=== PATIENT | female | born 1980 | race Hispanic/Latino ===

== ENCOUNTER 2025-02-02 23:46 | Emergency (ER) | payer SELFPAY ==
[~2025-02-02] VITALS: Ht 167.6 cm; Wt 127.0 kg
[~2025-02-02 23:46] MED LIST: AEC81 PO; LOSA100T59 PO; METO50TA18 PO; TELM40TA8 PO
[2025-02-02] MEDS ORDERED: ETOMIDATE 20MG VIAL IVP ONE (23:47)
[2025-02-03 00:16] LABS: APPEARANCE,URINE CLEAR (CLEAR); GLUCOSE, URINE (UA) TRACE mg/dL (NEGATIVE); LEUKOCYTE ESTERASE ,URINE NEGATIVE Leu/uL (NEGATIVE); NITRATE,URINE NEGATIVE (NEGATIVE); OCCULT BLOOD,URINE +- (TRACE) (NEGATIVE)
--- NOTE | 2025-02-03 00:17 | NUR ---
PT TAKEN TO CT WITH ED RN
[2025-02-03 00:21] LABS: ADD UA MICROSCOPIC YES
[2025-02-03 00:23] LABS: SQUAMOUS EPITHELIAL CELL,UR RARE /HPF (0-2)
[2025-02-03 00:24] LABS: AMPHET/METH SCREEN,URINE NEGATIVE (NEGATIVE); BARBITURATE SCREEN, URINE NEGATIVE (NEGATIVE); CANNABINOID SCREEN,URINE NEGATIVE (NEGATIVE); COCAINE SCREEN,URINE NEGATIVE (NEGATIVE)
--- NOTE | 2025-02-03 00:25 | NUR ---
PT BROUGHT BACK FROM CT WITH ED RN
[2025-02-03 00:27] LABS: IMMATURE GRANULOCYTE ABSOLUTE 0.07 K/uL (0-1); NUCLEATED RED BLOOD CELLS 0.0 % (0.0-0.19); PLATELET COUNT (AUTO) 151 K/uL (130-400); RED BLOOD CELL COUNT(AUTO) 4.84 MIL/uL (4.00-5.50); RED CELL DISTRIBUTION WIDTH 13.2 % (11.0-15.5); WHITE BLOOD COUNT (AUTO) 12.1 K/uL (4.8-10.8)
[2025-02-03 00:35] LABS: CREATININE 1.0 mg/dL (0.5-1.0); GLOMERULAR FILTR. RATE CALC 72.0 mL/min (>90); GLUCOSE,RANDOM 173.0 mg/dL (70-105); SODIUM SERUM 137.0 mmol/L (136-145); UREA NITROGEN, BLOOD 13.0 mg/dL (7-18)
--- NOTE | 2025-02-03 00:40 | NUR ---
INTUBATION NOTE: 0035 20MG OF ETOMIDATE GIVEN IVP ORDERED BY ED 0036 100MG OF ROCURONIUM GIVEN IVP ORDERED BY ED 0037 PATINT INTUBATED AT THIS TIME BY GUSTAVO DONALD WITH ED MD AT BEDSIDE ; 7.5 ETT@24 CM AT THE TEETH 16FR OG TUBE INSERTED 16FR DICKERSON INSERTED
[2025-02-03 00:42] LABS: CREATINE KINASE, TOTAL 200.0 U/L (21-232)
[2025-02-03 01:14] VITALS: PULSE 134; O2SAT 100
--- NOTE | 2025-02-03 01:20 | HMCIMG ---
EXAM: CT Head Without IV contrast. HISTORY: Patient presents with unresponsiveness and altered mental status. TECHNIQUE: Axial computed tomography images of the head/brain without intravenous contrast. COMPARISON: None provided. FINDINGS: BRAIN: Diffuse cerebral edema with effacement of the sulci and CSF spaces. A 1.7 ??? 1.7 ??? 1.1 cm hyperdense lesion in the left ganglio-thalamic region with surrounding edema extending throughout the ventricular system, producing mild hydrocephalus. Mass effect with approximately 5 mm midline shift to the right. Peripheral hypodensities with loss of barrera???white matter differentiation in both frontal lobes, more pronounced on the left, concerning for acute ischemic etiology. Mild acute SAH in the left perimesencephalic cisterns. Bilateral periventricular white matter chronic small vessel ischemic changes. VENTRICLES: Mild hydrocephalus related to intraventricular extension of the hyperdense lesion. ORBITS the little: Unremarkable. SINUSES AND MASTOIDS: Paranasal sinuses and mastoid air cells are clear. BONES: No fracture. SOFT TISSUES: Unremarkable. Endotracheal tube in situ. IMPRESSION: Hyperdense left ganglio-thalamic lesion with extensive intraventricular extension, surrounding edema, and mild hydrocephalus. Differentials are hypertensive bleed versus underlying vascular malformation. Mass effect with approximately 5 mm midline shift to the right. Peripheral frontal lobe hypodensities with barrera???white matter differentiation loss, more prominent on the left, concerning for acute infarct. Mild acute SAH in the left perimesencephalic cisterns. Diffuse cerebral edema with effacement of sulci and CSF spaces. Chronic small vessel ischemic changes in the periventricular white matter. Recommend MRI brain with contrast and MR angiography as higher-tier imaging for characterization of the lesion, evaluation of ischemia, and assessment of intracranial vasculature. /[place]
--- NOTE | 2025-02-03 01:38 | HMCIMG ---
EXAM: CR Chest, 1 View. CLINICAL HISTORY: Post intubation. COMPARISON: None provided. FINDINGS: The endotracheal tube is low in position with the tip at 1.8 cm from the sandrine. The nasogastric tube is in place with the distal end in the body of the stomach. LUNGS: There is no mass, infiltrate, or acute pulmonary abnormality. PLEURAL SPACES: No evidence of pleural effusion or pneumothorax. MEDIASTINUM: Cardiomegaly. BONES: No aggressive appearing osseous lesion. IMPRESSION: No acute infiltrate or effusion. Cardiomegaly. The endotracheal tube is low in position with the tip athe t 1.8 cm from the sandrine. Needs repositioning. The nasogastric tube is in place. /[place]
[2025-02-03] MEDS: MANNITOL 20% 500 ML IV.SOLN IV ONE (01:47)
[2025-02-03] MEDS ORDERED: ETOMIDATE 20MG VIAL IVP ONE (02:30)
--- NOTE | 2025-02-03 03:09 | HMCIMG ---
EXAM: CR Chest, 1 View. CLINICAL HISTORY: POST CENTRAL LINE PLACEMENT COMPARISON: Compared with previous FINDINGS: The nasogastric tube is well-positioned over the stomach. The left central venous catheter and tip are located in the distal SVC. The endotracheal tube is located near the sandrine. LUNGS: The lungs show bilateral air space opacities in the lower zone PLEURAL SPACES: No evidence of pleural effusion or pneumothorax. MEDIASTINUM: Cardiac size and mediastinal contours are within normal limits. BONES: No aggressively appearing osseous lesion was seen. IMPRESSION: Low position of the endotracheal tube (need revision) Well-placed left central venous catheter, and the tip is in the distal SVC. Air space infiltrates the lower zone. (As compared to the previous X-ray position, of endotracheal tubes remain the same) /[place]
--- NOTE | 2025-02-03 03:18 | NUR ---
REPORT GIVEN TO CODY RUIZ FROM [facility], ROOM 4229;
--- NOTE | 2025-02-03 03:21 | ERN ---
General Chief Complaint: Altered Mental Status Stated Complaint: UNRESPONSIVE Time Seen by MD: 00:14 Source: family History of Present Illness Initial Comments 44-year-old female morbidly obese with diabetes and hypertension was found slumped over in the bathroom by her family after she had not come out from the bathroom in a reasonable amount of time. EMT was called, they noted the patient was unresponsive but breathing spontaneously and had pinpoint pupils. They gave patient Narcan on route but the patient did not wake up. In the emergency room here two more doses of Narcan were given and the patient is still did not wake u p. Stat CT scan was obtained it showed a subarachnoid hemorrhage on the left side. Patient was subsequently intubated and arrangements made to transfer her to [facility]. In addition central line in the left IJ and also a right femoral a line were placed. Patient was placed on a Cardene drip as well as a propofol drip. Allergies: Coded Allergies: No Known Allergies (Verified Allergy, Unknown, 12/14/19) Home Meds Active Scripts Aspirin (ASPIRIN 81 MG ECTAB) 81 Mg Ectab, 81 MG PO DAILY, #90 TAB.EC Prov:[facility] 12/17/19 Metoprolol Tartrate (Metoprolol Tartrate) 50 Mg Tablet, 50 MG PO BID, #180 TAB Prov:NELY ARTIS [employer] 12/17/19 Losartan Potassium (Losartan Potassium) 100 Mg Tablet, 100 MG PO AM, #90 TAB Prov:[facility]IS [facility] 12/17/19 Reported Medications Telmisartan (Telmisartan) 40 Mg Tablet, 40 MG PO BID, TAB 12/14/19 Past Medical History Past Medical History: Diabetes-Type II, Hypertension Past Surgical History: Unknown ROS Dictation Unable to obtain review of systems as patient is unresponsive. Physical Exam General Appearance: (+) mild distress Orientation: (+) other documentation (Patient unresponsive with a GCS of E1 M4 V intubated) Head/Face Trauma: No Eye: bilateral eye normal inspection, bilateral eye PERRL, bilateral eye EOMI Ear, Nose, Throat: (+) hearing grossly normal, (+) normal ENT inspection Neck: (+) normal inspection, (+) supple, (+) no JVD Respiratory: (+) chest non-tender, (+) lungs clear, (+) well ventilated Heart: (+) regular, (+) no gallop Vascular: (+) no edema, (+) normal peripheral pulse, (+) no JVD Gastrointestinal: (+) soft, (+) bowel sound present Results Laboratory and Microbiology Lab and Micro Result Laboratory Tests Test 02/03/25 00:06 02/03/25 00:07 02/03/25 00:08 White Blood Count 12.1 K/uL (4.8-10.8) H Red Blood Count 4.84 MIL/uL (4.00-5.50) Hemoglobin 14.5 g/dL (12.0-16.0) Hematocrit 43.5 % (36-48) Mean Corpuscular Volume 89.9 fL (79-99) Mean Corpuscular Hemoglobin 30.0 pg (27.0-33.0) Mean Corpuscular Hemoglobin Concent 33.3 g/dL (32.0-36.0) Red Cell Distribution Width 13.2 % (11.0-15.5) Platelet Count 151 K/uL (130-400) Mean Platelet Volume 12.0 fL (7.5-10.5) H Immature Granulocyte % (Auto) 0.6 % (0-1) Neutrophils (%) (Auto) 71.7 % (40.0-77.0) Lymphocytes (%) (Auto) 19.7 % (21.0-51.0) L Monocytes (%) (Auto) 6.4 % (3.0-13.0) Eosinophils (%) (Auto) 1.0 % (0.0-8.0) Basophils (%) (Auto) 0.6 % (0.0-5.0) Neutrophils # (Auto) 8.7 K/uL (1.8-7.7) H Lymphocytes # (Auto) 2.4 K/uL (1.0-4.8) Monocytes # (Auto) 0.8 K/uL (0.1-1.0) Eosinophils # (Auto) 0.12 K/uL (0.00-0.70) Basophils # (Auto) 0.07 K/uL (0.00-0.20) Absolute Immature Granulocyte (auto 0.07 K/uL (0-1) Nucleated Red Blood Cells 0.0 % (0.0-0.19) Sodium Level 137 mmol/L (136-145) Potassium Level 3.4 mmol/L (3.5-5.1) L Chloride Level 100 mmol/L (101-111) L Carbon Dioxide Level 25 mmol/L (21-32) Blood Urea Nitrogen 13 mg/dL (7-18) Creatinine 1.0 mg/dL (0.5-1.0) Glomerular Filtration Rate Calc 72 mL/min (>90) Random Glucose 173 mg/dL (70-105) H Lactic Acid Level 4.3 mmol/L (0.8-2.5) H Total Calcium 8.7 mg/dL (8.5-10.1) Total Creatine Kinase 200 U/L (21-232) # Troponin I High Sensitivity 19.2 ng/L (4-50) Whole Blood Glucose 163 MG/DL (70-110) H Urine Color COLORLESS (YELLOW) Urine Appearance CLEAR (CLEAR) Urine pH 6.5 (5.0-8.0) Urine Specific [place] 1.012 (1.001-1.031) Urine Protein 50 mg/dL (NEGATIVE) H Urine Glucose (UA) TRACE mg/dL (NEGATIVE) H Urine Ketones NEGATIVE mg/dL (NEGATIVE) Urine Occult Blood +- (TRACE) (NEGATIVE) H Urine Nitrate NEGATIVE (NEGATIVE) Urine Bilirubin NEGATIVE mg/dL (NEGATIVE) Urine Urobilinogen 0.2 mg/dL (0.2-1.0) Urine Leukocyte Esterase NEGATIVE [place]/uL Urine RBC 2-5 /HPF (0-1) H Urine WBC 0-1 /HPF (0-1) Urine Squamous Epithelial Cells RARE /HPF (0-2) Urine Bacteria None /HPF (None Seen) Urine Opiates Screen NEGATIVE (NEGATIVE) Urine Barbiturates Screen NEGATIVE (NEGATIVE) Urine Phencyclidine Screen NEGATIVE (NEGATIVE) Urine Amphetamines Screen NEGATIVE (NEGATIVE) Urine Benzodiazepines Screen NEGATIVE (NEGATIVE) Urine Cocaine Screen NEGATIVE (NEGATIVE) Urine Marijuana (THC) Screen NEGATIVE (NEGATIVE) MDM Given the findings on the CT scan patient was given 170 g of mannitol. She is also given a g of Keppra. With the propofol sedation and a Cardene drip patient's systolic blood pressure was maintain below 140. Patient transferred to [facility] neuro surgery ED Course Orders Procedure Category Date Status Time Naloxone Hcl 0.4 Mg/1 PHA 02/03/25 Complete Ml Ml (Narcan 0.4m 00:07 Iv Insertion CPOE 02/02/25 Transmitted 23:58 Pulse Ox(Continuous) RT 02/02/25 Transmitted 23:58 Vital Signs Per CPOE 02/02/25 Transmitted Routine 23:58 12 Lead Ekg Tracing- EKG 02/02/25 Logged Technical 23:58 Cbc With Differential LAB 02/02/25 Complete 23:58 Blood Cult DUC 02/02/25 In Process 23:58 Urinalysis Profile LAB 02/02/25 Complete 23:58 Culture Urine DUC 02/02/25 Logged 23:58 Lactic Acid LAB 02/02/25 Complete 23:58 Basic Metabolic Panel LAB 02/02/25 Complete 23:58 Drug Screen Urine LAB 02/03/25 Complete 00:09 Ct Head/Brain W/O CT 02/03/25 Resulted Contrast 00:12 Nicardipine 25mg Inj PHA 02/03/25 Complete (Cardene 25mg Inj) 00:15 Nicardipine 25mg Inj PHA 02/03/25 In Process (Cardene 25mg Inj) 00:30 Cardiac Panel LAB 02/03/25 Complete 00:06 Nicardipine 25mg Inj PHA 02/03/25 Complete (Cardene 25mg Inj) 00:30 Ondansetron 4mg Inj PHA 02/03/25 Complete (Zofran 4mg Inj) 00:32 Chest 1vw RAD 02/03/25 Resulted 00:42 Levetiracetam 500 PHA 02/03/25 Complete Mg/5 Ml Sd V (Keppra 5 00:44 *Nursing CPOE 02/03/25 Transmitted Communication: 00:45 Levetiracetam 500 PHA 02/03/25 Complete Mg/5 Ml Sd V (Keppra 5 01:00 Propofol 1000 Mg/100 PHA 02/03/25 In Process Ml (Diprivan 1000mg 01:00 Propofol 1000 Mg/100 PHA 02/03/25 Complete Ml (Diprivan 1000mg 00:50 Levetiracetam 500 PHA 02/03/25 Complete Mg/5 Ml Sd V (Keppra 5 01:30 Labetalol 20mg Syg PHA 02/03/25 Complete (Trandate 20mg Syg) 01:30 Labetalol 20mg Syg PHA 02/03/25 Complete (Trandate 20mg Syg) 01:12 Naloxone Hcl 0.4 Mg/1 PHA 02/03/25 Complete Ml Ml (Narcan 0.4m 01:30 Naloxone Hcl 0.4 Mg/1 PHA 02/03/25 Complete Ml Ml (Narcan 0.4m 01:30 Ondansetron 4mg Inj PHA 02/03/25 Complete (Zofran 4mg Inj) 01:30 Mannitol 20% 500ml PHA 02/03/25 Complete Bag (Osmitrol 20% 500 02:00 Chest 1vw RAD 02/03/25 Resulted 01:57 Etomidate 20mg Vial PHA 02/03/25 Complete (Amidate 20mg Vial) 02:30 Rocuronium [place] PHA 02/03/25 Complete (Zemuron) 02:30 Naloxone Hcl 0.4 Mg/1 PHA 02/03/25 Complete Ml Ml (Narcan 0.4m 02:30 Lactic Acid (Removed) LAB 02/03/25 Logged 03:20 Current Medications Medications (Trade) Dose Ordered Sig/Raj Route PRN Reason Start Time Stop Time Status Last Admin Dose Admin Etomidate (Amidate 20mg Vial) 20 mg ONCE ONCE IVP 02/03/25 02:30 02/03/25 02:31 DC Labetalol HCl (TRANdate 20MG SYG) 10 mg ONCE ONCE IV 02/03/25 01:30 02/03/25 01:31 DC 02/03/25 01:21 Labetalol HCl (TRANdate 20MG SYG) 20 mg STK-MED ONCE IV 02/03/25 01:12 02/03/25 01:12 DC Levetiracetam (kepPRA 500 MG/5 ML SD VIAL) 500 mg STK-MED ONCE IV 02/03/25 00:44 02/03/25 00:44 DC Levetiracetam (kepPRA 500 MG/5 ML SD VIAL) 1,000 mg ONCE ONCE IV 02/03/25 01:00 02/03/25 01:02 DC 02/03/25 01:16 Levetiracetam (kepPRA 500 MG/5 ML SD VIAL) 1,000 mg ONCE ONCE IV 02/03/25 01:30 02/03/25 01:31 DC Mannitol (Osmitrol 20% 500ml Bag) 127 gm ONCE ONCE IV 02/03/25 02:00 02/03/25 02:01 DC 02/03/25 01:47 Naloxone HCl (NARcan 0.4mg/1 mL) 0.4 mg ONCE IVP 02/03/25 01:30 02/03/25 02:13 DC Naloxone HCl (NARcan 0.4mg/1 mL) 0.4 mg ONCE IVP 02/03/25 01:30 02/03/25 02:13 DC Naloxone HCl (NARcan 0.4mg/1 mL) 0.4 mg ONCE ONCE IVP 02/03/25 02:30 02/03/25 02:14 DC Naloxone HCl (NARcan 0.4mg/1 mL) 0.4 mg STK-MED ONCE .ROUTE 02/03/25 00:07 02/03/25 00:07 DC 02/03/25 00:07 Nicardipine HCl (CarDENE 25MG INJ) 25 mg STK-MED ONCE IV 02/03/25 00:15 02/03/25 00:15 DC Nicardipine HCl 25 mg/Sodium Chloride 250 ml @ 0 mls/hr PROTOCOL IV 02/03/25 00:30 03/05/25 00:29 02/03/25 01:19 Nicardipine HCl 50 mg/Sodium Chloride 250 ml @ 0 mls/hr PROTOCOL IV 02/03/25 00:30 02/03/25 00:28 DC Ondansetron HCl (zoFRAN 4MG INJ) 4 mg ONCE ONCE IVP 02/03/25 01:30 02/03/25 01:31 DC 02/03/25 00:32 Ondansetron HCl (zoFRAN 4MG INJ) 4 mg STK-MED ONCE .ROUTE 02/03/25 00:32 02/03/25 00:32 DC Propofol 100 ml @ As Directed STK-MED ONCE IV 02/03/25 00:50 02/03/25 00:50 DC Propofol (DIPRivan 1000MG/ 100ML) 1,000 mg PROTOCOL PRN IV SEDATION 02/03/25 01:00 03/05/25 00:59 02/03/25 01:20 Rocuronium [place] (ZemuRON) 100 mg ONCE ONCE IV 02/03/25 02:30 02/03/25 02:31 DC Vital Signs Date Time Temp Pulse Resp B/P (MAP) Pulse Ox O2 Delivery O2 Flow Rate FiO2 02/03/25 02:58 86 12 110/56 98 Ventilator+ 50 02/03/25 02:31 97.9 84 12 137/65 99 Ventilator+ 50 02/03/25 01:53 76 156/82 97 Ventilator+ 50 02/03/25 01:36 78 22 163/94 97 Ventilator+ 50 02/03/25 01:26 98.2 64 15 192/102 98 Ventilator+ 52 02/03/25 01:21 86 210/112 02/03/25 01:19 89 223/129 02/03/25 01:14 134 50 02/03/25 00:34 76 20 261/134 100 Non-Rebreather+ 15 100 02/03/25 00:11 85 20 229/144 99 Nasal Cannula* 2 28 02/02/25 23:55 76 20 211/111 99 Nasal Cannula* 2 02/02/25 23:47 97.9 72 18 143/78 97 Room Air 0 Central Line Central Line : Central Line Lumen: triple Central Line Procedure: no betadine prepno sterile drapes appliedno sterile dressing applied Central Line Postion: internal jugular (L) Complications: none Central Line Post Position: sutured, good blood return, position confirmed w/ CXR Intubation Intubation : Time of Intubation: 20:50 Intubation Method: orotracheal Tube Size (cm): 7.5 Medications: Succinylcholine Breath Sounds after Intubation: right greater than left Intubation Complications: no complications Post Intubation Xray: Yes Progress/Xray Impression: X-ray shows ET tube in good position above the sandrine. Patient had infiltr Additional Procedures Additional Procedures : Additional Procedures: other (Arterial line placed in right femoral artery using a Seldinger technique and palpation to find the artery. Artery entered in 1st pass of the wire. Good waveform at the end of the procedure.) DX & DISP Disposition: Transfer Departure Impression: Primary Impression: Subdural hematoma, nontraumatic Condition: Stable Referrals: SELF,REFERRAL (PCP) AUDRA BEAVERS MD Feb 03, 2025 03:21
[2025-02-03 03:30] VITALS: BP 124/59; PULSE 76; RESP 12; TEMP 97.6; O2SAT 98
--- NOTE | 2025-02-03 03:31 | NUR ---
[facility] AT BEDSIDE FOR TRANSPORT TO [facility]
--- NOTE | 2025-02-03 03:33 | NUR ---
PATIENT LEAVING VIA EMS AT THIS TIME
--- NOTE | 2025-02-03 05:46 | EKG ---
[facility] Test Date: 2025-02-02 Test Time: 23:57:56 Pat Name: IRINA VILLASEÑOR Department: [facility] Room: Gender: F Specialty Therapist: [id number] : 1980 Requested By: AUDRA BEAVERS Order Number: [id number] Reading MD: Lubna Rolle Measurements Intervals [place] Rate: 70 P: -9 TN: 145 QRS: -2 QRSD: 99 T: 112 QT: 432 QTc: 468 Interpretive Statements Sinus rhythm LVH with secondary repolarization abnormality Compared to ECG 12/14/2019 10:16:10 Left ventricular hypertrophy now present Early repolarization now present Myocardial infarct finding no longer present T-wave abnormality no longer present Possible ischemia no longer present Electronically Signed On 02-04-2025 08:48:57 MAT MAN by Lubna Rolle Please click the below link to view image of tracing.
== END 2025-02-03 03:33 | disposition short-term general hospital (02) ==
LOC: EDH 23:46
DX: I62.00 Nontraumatic subdural hemorrhage, unspecified (principal); E11.9 Type 2 diabetes mellitus without complications; E66.01 Morbid (severe) obesity due to excess calories; I10 Essential (primary) hypertension; Z79.82 Long term (current) use of aspirin; Z79.899 Other long term (current) drug therapy
CPT/HCPCS: 99285; 82550; 84484; 80048; 80305; 85025; 87040 ×2; 87086; 82948; 83605; 36415 ×2; 93005; 81001; 36556; 36620; 31500; 70450; 71045 ×2; 96365; 96366; 96375; J3490 ×4; J2312; J1953; J2704 ×2; J2405; J7050; A9900; 94002; 96374